=== PATIENT | male | born 1975 | race Caucasian/White ===

== ENCOUNTER 2016-09-13 07:35 | Emergency (ER) | payer MEDICAID ==
[~2016-09-13] VITALS: Ht 182.9 cm; Wt 76.3 kg
[2016-09-13 08:24] LABS: BLOOD UREA NITROGEN 14 mg/dL (7-18)
[2016-09-13] MEDS ORDERED: SODIUM CHLORIDE 0.9% 1,000 ML IV ONE (08:37)
[2016-09-13] MEDS ORDERED: ACETAMINOPHEN 325 MG TABLET PO ONE (09:00)
[2016-09-13] MEDS ORDERED: SODIUM CHLORIDE 0.9% 1,000ML IVBOLUS ONE (09:00)
[2016-09-13] MEDS ORDERED: SODIUM CHLORIDE FLUSH 10ML SYR IVF ONE (09:00)
[2016-09-13] MEDS ORDERED: CEFTRIAXONE PMX 1GM/50ML 50 ML IV ONE (10:00)
[2016-09-13] MEDS ORDERED: CEFTRIAXONE PMX 1GM/50ML 50 ML ONE (10:29)
[2016-09-13] MEDS ORDERED: ACETAMINOPHEN 325 MG TABLET ONE (10:29)
[2016-09-13 11:44] VITALS: BP 119/80
== END 2016-09-13 11:46 | disposition home or self-care (01) ==
LOC: ED 08:09
DX: N39.0 Urinary tract infection, site not specified (principal); N45.1 Epididymitis; D72.829 Elevated white blood cell count, unspecified; N43.3 Hydrocele, unspecified; F12.10 Cannabis abuse, uncomplicated; F15.10 Other stimulant abuse, uncomplicated
CPT/HCPCS: 36415; 76870; 80048; 81001; 82040; 85025; 87086; 87491; 87591; 96365; 99285; J0696; J7030

== ENCOUNTER 2018-07-08 16:19 | Emergency (ER) | payer MEDICAID ==
[~2018-07-08] VITALS: Ht 182.9 cm; Wt 76.4 kg
[2018-07-08 16:38] VITALS: BP 157/90
--- NOTE | 2018-07-08 16:46 | NUR ---
BREAK RN. PT AMBULATORY TO [facility] FROM TRIAGE WITH STEADY GAIT. NAD NOTED. REPORTS KNEE PAIN TODAY, DENIES ANY INJURY OR TRAUMA. CMS INTACT. PULSE NORMAL AND STRONG. NO SWELLING NOTED. [place] AT BEDSIDE FOR EVALUATION. CALL LIGHT IN REACH. FALL PRECAUTIONS IN PLACE. SIDE RAILS UPX2. A&OX4.
--- NOTE | 2018-07-08 17:08 | NUR ---
BEDSIDE REPORT AND CARE BACK TO PRIMARY RACHID NOVOA
== END 2018-07-08 18:16 | disposition home or self-care (01) ==
LOC: ED 18:09
DX: M25.562 Pain in left knee (principal); F17.200 Nicotine dependence, unspecified, uncomplicated
CPT/HCPCS: 99283